=== PATIENT | female | born 1975 | race Two or more races ===

== ENCOUNTER → 2019-09-11 12:52 | Day surgery (SDC) | payer OTHER ==
[~2019-09-11 12:52] MED LIST: Acetaminophen TAB* 325 MG PO PRN; Bacitracin OINTMENT* 0.5% 0.5 oz TUBE ONE; Buffered Lidocaine 1% SYRIN* 1 ML/SYRINGE INTRADERM ONE; Bupivacaine 0.25% SDV PF* 10 ML VIAL INJ ONE; Chloroprocaine 2%* 20 ML VIAL ONE; Dexamethasone IV* 4 MG/ML 1 ML (4 MG) ONE; Gelfoam Sponge SIZE 100* SPONGE ONE; Ketorolac INJ* 30 MG/ML 1 ML VIAL IV PRN; Lactated Ringers 1000 ML Bag* 1,000 ML IV SCH; Midazolam* 1 MG/ML 2 ML VIAL (2 MG) ONE; Naloxone* 0.4 MG/ML 1 ML VIAL IV PRN; Ondansetron INJ* 2 MG/ML VIAL IV PRN; Propofol* 10 MG/ML 20 ML BTL ONE; ceFAZolin 2 GM PREMIX in ORs 2 GM/50 ML BAG ONE; fentaNYL* 50 MCG/ML 2 ML VIAL (100 MCG VIAL) IV PRN; fentaNYL* 50 MCG/ML 2 ML VIAL (100 MCG VIAL) ONE; oxyCODONE/Acetamin 5/325 MG* TAB ONE; oxyCODONE/Acetamin 5/325 MG* TAB PO PRN
[2019-09-11] MEDS: Dexamethasone IV* 4 MG/ML 1 ML (4 MG) IV SLOW PU ONE (13:28)
--- NOTE | 2019-09-11 16:19 | BRIEFOPN ---
Brief Operative/Procedure Note - Operation Details Pre-Op Diagnosis: internal hemorrhoids, grade III Post-Op Diagnosis: same Procedures: hemorrhoidectomy x 3 Surgeon(s)/Proceduralists: Annie Tang Anesthesia: spinal Findings: large circumferential internal hemorrhoids Specimen(s)/Culture(s) Description: anterior midline hemorrhoid, right and left posterior midline hemorrhoids Complications: none
[2019-09-11 18:24] VITALS: BP 142/101
--- NOTE | 2019-09-11 21:28 | OP ---
CC: Dr. Vy Smith * DATE OF OPERATION: 09/11/19 - [facility] DATE OF : 73 SERVICE: General Surgery. ATTENDING SURGEON: Dr. Ernestine Hsieh. AUTOMATIC MOLD SANDER: Annie Gardiner NP ANESTHESIOLOGIST: Dr. Cody Cope. PRE-OP DIAGNOSIS: Grade 3 internal hemorrhoids. POST-OP DIAGNOSIS: Grade 3 internal hemorrhoids. OPERATIVE PROCEDURE: Hemorrhoidectomy. SPECIMEN: Anterior midline hemorrhoid, right posterior midline hemorrhoid , left posterior midline hemorrhoid. ESTIMATED BLOOD LOSS: Minimal, less than 10 cc. INDICATION FOR SURGERY: Ms. Lee is a very pleasant 44-year-old female with no significant past medical history, who presented with many years of having reducible internal hemorrhoids that were becoming increasingly bothersome. She said that they come out often and were disruptive to her every day life, therefore she wished to have them removed. She understood that the risks included but were not limited to bleeding, infection, injury to nearby structures such as the anal sphincter and the possibility of having either anal incontinence or anal stenosis from injury to the sphincter. She understood all these things as well as alternatives and the benefits and she wished to proceed. DESCRIPTION OF PROCEDURE: The patient was brought back to the operating room and sat upright on the operating table. Spinal anesthesia was administered by the anesthesiologist and the patient was placed supine. Sequential compression devices were placed on the bilateral lower extremities for DVT prophylaxis. She was then placed in the modified lithotomy position and antibiotics were administered. The vagina and the anus were prepped and draped in the normal sterile fashion and prior to beginning the procedure a time-out was performed, verifying the patient's name, date of and the procedure to be performed. On external anal exam, the patient had a small external hemorrhoid at the posterior midline position and no significant anal skin tags. She did not have at that point any prolapsed internal hemorrhoids. On digital rectal exam, she had no gross masses of the stool on the rectal vault. There was no gross bleeding. On endoscopic exam, the patient had almost circumferential internal hemorrhoids present. Her largest hemorrhoid which was the one I had seen in the office was located at the anterior midline. She also had 2 additional moderately-sized hemorrhoids located at the posterior midline at the 5 o'clock and the 7 o'clock position. She had other scattered smaller internal hemorrhoids. Given that she almost had fully circumferential hemorrhoids the decision was made to resect the most prominent and largest one. I am starting with the one at the anterior midline. Using the LigaSure device, the redundant mucosa, the hemorrhoid was grasped, elevated and divided using LigaSure from the perianal skin all way the up to the apex of the hemorrhoid. Specimen was carried off and sent to Pathology. In a similar fashion, using LigaSure, the left posterior and the right posterior midline hemorrhoids were removed using the LigaSure and carried off as specimen. At the end of the procedure, hemostasis was obtained. The anal tone and anal sphincter were preserved and did not appear to be injured during the procedure. A piece of Gelfoam was placed in the anal canal for further hemostasis and then the patient was woken, taken to the PACU in stable condition. At the end of the case, all counts were correct and I was present during the entirety of the case. [id number] #: [id number] JESUS
== END | disposition home or self-care (01) ==
LOC: OR 12:52
PROVIDERS: ATTEND Surgery
DX: K64.2 Third degree hemorrhoids (principal); M54.2 Cervicalgia
CPT/HCPCS: 88304; A9270-GY; J0690; J1100; J2250; J2400; J2704; J3010; J3490